=== PATIENT | female | born 1990 | race Caucasian/White ===

== ENCOUNTER 2017-11-07 17:12 | Inpatient (IN) | payer OTHER ==
[~2017-11-07] VITALS: Ht 165.1 cm; Wt 56.7 kg
[2017-11-07] MEDS ORDERED: MAGNESIUM HYDROXIDE 30 ML LIQUID UDC PO PRN (18:15)
[2017-11-07] MEDS ORDERED: ONDANSETRON 4 MG/2 ML VIAL IM PRN (18:15)
[2017-11-07] MEDS ORDERED: DICYCLOMINE HCL 20 MG TABLET PO PRN (18:15)
[2017-11-07] MEDS ORDERED: LORAZEPAM 1 MG TABLET PO PRN (18:15)
[2017-11-07] MEDS ORDERED: CLONIDINE HCL 0.1 MG TABLET PO PRN (18:15)
[2017-11-07] MEDS ORDERED: LOPERAMIDE HCL 2 MG CAPSULE PO PRN ×2 (18:15)
[2017-11-07] MEDS ORDERED: METHOCARBAMOL 750 MG TABLET PO PRN (18:15)
[2017-11-07] MEDS ORDERED: MIRALAX 17 GM POWD.PACK PO PRN (18:15)
[2017-11-07] MEDS ORDERED: diphenhydrAMINE 50 MG CAPSULE PO PRN (18:15)
[2017-11-07] MEDS ORDERED: ONDANSETRON ODT 4 MG TAB.RAPDIS SL PRN (18:15)
[2017-11-07] MEDS ORDERED: MAG HYDROX/AL HYDROX/SIMETH 30 ML LIQUID UDC PO PRN (18:15)
[2017-11-07] MEDS ORDERED: BUPRENORPHINE HCL 2 MG TAB.SUBL SL PRN (18:15)
[2017-11-07 18:28] LABS: *URINE HCG, QUAL NEGATIVE (NEGATIVE)
[2017-11-07 18:37] LABS: *AMPHETAMINE, URINE NEGATIVE (NEGATIVE); *BARBITURATE, URINE NEGATIVE (NEGATIVE); *CANNABINOID, URINE POSITIVE (NEGATIVE); *COCCAINE, URINE NEGATIVE (NEGATIVE); *OPIATE, URINE POSITIVE (NEGATIVE); *PHENCYCLIDINE SCREEN,URINE NEGATIVE (NEGATIVE)
--- NOTE | 2017-11-07 19:02 | NUR ---
PRE ADMISSION 27 year old female from [place], [place]. presented at intake office, noted alert and oriented x4, verbally responsive. Patient appears calm and cooperative. bp: 121/77 hr: 96 t: 98.0 r: 16 o2 sat: 99% room air. Patient reports no known drug allergies. Patient reports Substance use of: Heroin 2.5gram IV daily for 8 months, last used heroin 11/06/2017 at 2100-0.1gram IV, methamphetamine unknown amount IV daily for 10 months, last used methamphetamine unknown amount via IV on 11/05/2017, Klonopin 2mg PO once a week for 3 months, last used Klonopin 2mg PO on 11/01/2017, Xanax 2mg PO every other day for 3 months, last used Xanax 2mg "about two or three days ago". Patient reports also takes Suboxone 8mg SL when Heroin is unavailable, last used 11/07/2017 8mg SL. Reports relapsed on heroin 8 months ago, prior to that was taking Suboxone for two years. Patient reports past medical history of: bipolar d/o Dx: 5 years ago, depression Dx: age 18, anxiety Dx: age 18, and PTSD Dx: 2017. Reports she does not have a primary care physician. Reports history of seizures d/t benzodiazepine withdrawal, last seizure was 6 years ago. Patient was provided with education regarding unit policies and procedures with good verbal understanding. Patient arrived to [facility] at 1853, patients body search completed by female THERAPIST PHYS, no contraband found. Patients skin assessment completed noted with track durham on right A/C, area noted red with some swelling. Patient is 5 feet 5 inches and weighs 125lbs. Patient was oriented to unit and to room, education regarding call light was provided with good verbal understanding. Patient was seen and examined by Dr. Gonzales at intake office, prior to nursing pre admission. patient was endorsed to shiftman nurse, all pertinent information was discussed.
[2017-11-07] MEDS ORDERED: VENL150C2 PO (19:21)
[2017-11-07] MEDS ORDERED: DIAZEPAM 5 MG TABLET PO PRN (19:30)
[2017-11-07] MEDS ORDERED: NICOTINE POLACRILEX 4 MG GUM-PK OF TEN BC PRN (19:30)
[2017-11-07] MEDS ORDERED: LORAZEPAM 2 MG/1 ML VIAL IM PRN (19:30)
[2017-11-07] MEDS ORDERED: DIAZEPAM 10 MG TABLET PO PRN ×2 (19:30)
[2017-11-07] MEDS ORDERED: NICOTINE 14 MG/24HR PATCH TD PRN (19:30)
[2017-11-07 20:00] VITALS: BP 124/77
--- NOTE | 2017-11-07 20:00 | NUR ---
ADMISSION NOTE: Patient is a 26 y.o female admitted at [facility] at approximately 1853 am of 11/07/17 for medically supervised withdrawal from Heroin/Klonopin/Xanax/Meth. Pt is 5'5" tall and weighs 125 lbs in a standing scale. Patient follows a regular diet at home with no known food and drug allergies. Pt wishes to be full Code. Patient is alert & oriented x4. Patient is ambulatory with a steady gait. Speech is clear and audible. Patient reports anxiety. Patient is cooperative and answers questions appropriately during interview. No shortness of breath noted. Respiration even & unlabored. Abdomen soft & non-distended. Bowel sounds active in all four quadrants. No nausea reported. Patient complained of generalized body aches, sweating, chills, stuffy nose. No headache noted. Hand tremors noted. Patient denies any hallucinations. On admission pt noted with COWS 10 CIWA 6. Patient noted with past medical history of Anxiety, Depression, PTSD & Bipolar. Pt reported that she attempted suicide 4 years ago, per patient she tried hanging herself and tried drinking some pills. Pt currently denies SI/HI. Pt was able to provide urine sample for drug screen upon admission and is voiding clear yellow urine with no problems.Pt had been to multiple detox treatment and unable to recall all of them. Patient denies being hospitalized in the last 30 days. Pt reported that her longest period of sobriety was for 2 years from 9 months ago. Pt decided to come to treatment today because "I want to detox off heroin, meth & benzos". Patient reports symptoms when he does not use as "cold sweats, restless legs, nausea, contispation, diarrhea, body aches, tremors, dizziness". Patient consented for a flu and pneumonia vaccines. Urine drug screen came back positive for Opiates and Marijuana. Fall & Seizure precautions are in place. All needs attended & met. Safety precautions are in place. Bed locked in lowest position. Both side rails up. Pt educated regarding use of the call light and all questions answered. Dr. Gonzales saw pt on unit. Fall precautions ordered. Will continue to monitor patient.
[2017-11-07] MEDS: GABAPENTIN 300 MG CAPSULE PO SCH (20:31)
[2017-11-07] MEDS ORDERED: PROPRANOLOL HCL 20 MG TABLET PO PRN (20:45)
[2017-11-07] MEDS ORDERED: BUPRENORPHINE HCL 2 MG TAB.SUBL SL SCH (21:00)
[2017-11-07] MEDS ORDERED: DIAZEPAM 10 MG TABLET PO SCH (21:00)
[2017-11-07 21:20] LABS: BASOPHILS % (AUTO) 0.4 % (0.0-2.0); EOSINOPHILS # (AUTO) 0.3 K/uL (0.0-0.7); EOSINOPHILS % (AUTO) 2.6 % (0.0-7.0); HEMATOCRIT 35.6 % (31.2-41.9); HEMOGLOBIN 12.3 g/dL (10.9-14.3); LYMPHOCYTES # (AUTO) 3.7 K/uL (20.0-40.0); LYMPHOCYTES % (AUTO) 29.1 % (20.5-51.5); MEAN CORPUSCULAR HGB CONC 35 g/dL (32.3-35.6); MEAN CORPUSCULAR VOLUME 86.7 fL (75.5-95.3); MONOCYTES # (AUTO) 0.6 K/uL (2.0-10.0); MONOCYTES % (AUTO) 4.8 % (0.0-11.0); NEUTROPHILS # (AUTO) 8.1 K/uL (1.8-8.9); NEUTROPHILS % (AUTO) 63.1 % (38.5-71.5); PLATELET COUNT (AUTO) 339 K/uL (179-408); RED BLOOD CELL COUNT(AUTO) 4.11 MIL/uL (3.63-4.92); WHITE BLOOD COUNT (AUTO) 12.8 K/uL (3.8-11.8)
[2017-11-07 21:30] LABS: ETHANOL < 3 MG/DL (0-0)
[2017-11-07 21:33] LABS: ALANINE AMINOTRANSFERASE 26 U/L (14-59); ALKALINE PHOSPHATASE 85 U/L (50-136); ASPARTATE AMINOTRANSFERASE 13 U/L (15-37); BILIRUBIN,TOTAL 0.2 mg/dL (0.2-1.0); CARBON DIOXIDE 30 mmol/L (21-32); CHLORIDE 102 mmol/L (98-107); CREATININE 0.8 mg/dL (0.6-1.3); GLUCOSE 100 mg/dL (74-106); MAGNESIUM 1.9 mg/dL (1.8-2.4); POTASSIUM 4.3 mmol/L (3.5-5.1); TOTAL PROTEIN, SERUM 7.4 g/dL (6.4-8.2); UREA NITROGEN, BLOOD 16 mg/dL (7-18)
[2017-11-08] VITALS: BP 124/65
[2017-11-08 04:00] VITALS: BP 105/61
--- NOTE | 2017-11-08 07:00 | NUR ---
End of Shift Note: Patient is a 27 y.o female admitted last night 11/07/17 for Heroin/Klonopin/Xanax/ Suboxone/Meth use. Patient has PMHx of Anxiety, Depression, Bipolar, PTSD and withdrawal induced seizure(6 years ago). Patient is on a regular diet with no known food and drug allergies. Full Code status. Skin intact. Patient is on a Subutex and Valium taper started last night and is tolerating well with no adverse reactions noted. Last COWS 6 CIWA 3 @ 0000. Patient did not received any PRN medications. Continued to monitor signs and symptoms of withdrawal. Vitals monitored closely and noted to be within normal limits. Patient remained stable with No s/s of distress noted. Patient slept for a total of 5 hours. Fluid intake: 800 ml. Voided 1x with no bowel movement. Encourage pt to increase fluid intake. All needs attended & met. Safety measures in place. Will endorse pt to day shift nurse.
--- NOTE | 2017-11-08 07:10 | NUR ---
Patient is a 26 y.o female admitted at [facility] at approximately 1853 am of 11/07/17 for medically supervised withdrawal from Heroin/Klonopin/Xanax/Meth. Pt is 5'5" tall and weighs 125 lbs in a standing scale. Patient follows a regular diet at home with no known food and drug allergies. Pt wishes to be full code. Patient is asleep in bed at this time, breathing unlabored and even. Fall precautions ordered. Will continue to monitor patient. No PRN meds given on PM shift and last COWS 6 and CIWA 3 @ 0000.
[2017-11-08] MEDS: GABAPENTIN 300 MG CAPSULE PO SCH ×3 (08:49→21:25)
[2017-11-08] MEDS: DIAZEPAM 10 MG TABLET PO SCH ×3 (08:49→21:25)
[2017-11-08] MEDS: BUPRENORPHINE HCL 2 MG TAB.SUBL SL SCH ×3 (08:49→21:25)
[2017-11-08 08:55] VITALS: BP 105/61
[2017-11-08] MEDS ORDERED: TUBERCULIN,PURIF.PROT.DERIV. 5 TU/0.1 ML TEST ID ONE ×3 (09:00→13:00)
[2017-11-08] MEDS: VENLAFAXINE XR 150 MG CAP.SR.24H PO SCH (09:44)
[2017-11-08] MEDS: HYDROXYZINE PAMOATE 25 MG CAPSULE PO PRN ×2 (11:40→19:08)
--- NOTE | 2017-11-08 11:40 | NUR ---
PRN VISTARIL 25MG PO AND ROBAXIN 750MG PO GIVEN FOR COMPLAINTS OF RESTLESS LEGS AND LEG CRAMPS, WILL CONTINUE TO ASSESS
[2017-11-08 12:00] VITALS: BP 111/70
--- NOTE | 2017-11-08 12:40 | NUR ---
PRN REASSESS PATIENT STATES THAT VISTARIL 25MG PO AND ROBAXIN 750 MG PO WERE EFFECTIVE FOR HER RESTLESS LEGS AND MADE HER FEEL MORE COMFORTABLE, WILL CONTINUE TO MONITOR.
[2017-11-08 16:00] VITALS: BP 128/83
--- NOTE | 2017-11-08 18:39 | NUR ---
End of Shift Note: Patient is a 27 y.o female admitted on 11/07/17 for Heroin/Klonopin/Xanax/ Suboxone/Meth use. Patient has PMHx of Anxiety, Depression, Bipolar, PTSD and withdrawal induced seizure(6 years ago). Patient is on a regular diet with no known food and drug allergies. Full Code status. Skin intact. Patient is on day 2 of a 5 day modified Subutex and Valium taper and is tolerating well with no adverse reactions noted. Last COWS 6 @1600. Patient received PRN Robaxin 750mg po and Vistaril 25 mg po with positive results for leg cramp pain and discomfort . Patient attended group today. Continue to monitor signs and symptoms of withdrawal. Vitals monitored closely and noted to be within normal limits. Safety measures in place, side rails up x2 , bed in low locked position
--- NOTE | 2017-11-08 19:08 | NUR ---
PRN VALIUM/VISTARIL 10MG VALIUM PO AND 25MG VISTARIL 25MG COWS 9/ 9
--- NOTE | 2017-11-08 19:15 | NUR ---
Start of Shift Note: Patient is a 27 y.o female admitted last night 11/07/17 for Heroin/Klonopin/Xanax/ Suboxone/Meth use. Patient has PMHx of Anxiety, Depression, Bipolar, PTSD and withdrawal induced seizure(6 years ago). Patient is on a regular diet with no known food and drug allergies. Full Code status. Skin intact. Patient is on a Subutex and Valium taper and is tolerating well with no adverse reactions noted. Last COWS 9 CIWA 9. Patient received PRN Valium, Vistaril x2 & Robaxin during day shift. Patient is alert & oriented x4. No shortness of breath noted. Respiration even & unlabored. Abomen soft & non-distended. Patient denies N/V/D. Patient presented with complaints of 5/10 body aches, sweating, chills, stuffy nose, stomach cramps and anxiety. Bilateral hand tremors felt but not seen. Patient denies SI/HI at this time. Safety precautions are in place. Bed locked in lowest position. Both side rails up. Call light within pts reach. Will continue to monitor patient.
[2017-11-08 20:00] VITALS: BP 116/67
--- NOTE | 2017-11-08 20:08 | NUR ---
PRN Reassessment Patient verbalized decreased in sweating, chills & anxiety. Patient still presetned with 5/10 body aches, stuffy nose, stomach cramps and anxiety. COWS 7 CIWA 5 noted at this time. Will continue to monitor patient.
[2017-11-08] MEDS: CLONIDINE HCL 0.1 MG TABLET PO SCH (21:00)
[2017-11-09] VITALS: BP 112/62
[2017-11-09 04:00] VITALS: BP 108/56
--- NOTE | 2017-11-09 07:10 | NUR ---
End of Shift Note: Patient is a 27 y.o female admitted last night 11/07/17 for Heroin/Klonopin/Xanax/ Suboxone/Meth use. Patient has PMHx of Anxiety, Depression, Bipolar, PTSD and withdrawal induced seizure(6 years ago). Patient is on a regular diet with no known food and drug allergies. Full Code status. Skin intact. Patient is on a Subutex and Valium taper and is tolerating well with no adverse reactions noted. Last COWS 7 CIWA 5. Patient did not received any PRN medications. Continued to monitor signs and symptoms of withdrawal. Vitals monitored closely and noted to be within normal limits. Patient remained stable with No s/s of distress noted. Patient slept for a total of 6 hours. Fluid intake: 1153 ml. Voided 3x with no bowel movement. Encourage pt to increase fluid intake. All needs attended & met. Safety measures in place. Will endorse pt to day shift nurse.
--- NOTE | 2017-11-09 07:20 | NUR ---
Start of Shift Note: Patient is a 27 y.o female admitted 11/07/17 for Heroin/Klonopin/Xanax/ Suboxone/Meth use. Patient has PMH of Anxiety, Depression, Bipolar, PTSD and withdrawal induced seizure(6 years ago). Patient is on a regular diet with no known food and drug allergies. Full Code status. Skin intact. Patient is on a Subutex and Valium taper and this is day 3 and is tolerating well with no adverse reactions noted. Last COWS 7 CIWA 5 @ 2100. Patient did not received any PRN medications. Continued to monitor signs and symptoms of withdrawal. Patient slept for a total of 6 hours. Safety measures in place. Continue with MD plan of care
[2017-11-09 08:00] VITALS: BP 108/52
[2017-11-09] MEDS ORDERED: BUPRENORPHINE HCL 2 MG TAB.SUBL SL SCH (09:00)
[2017-11-09] MEDS ORDERED: DIAZEPAM 5 MG TABLET PO SCH (09:00)
[2017-11-09] MEDS: GABAPENTIN 300 MG CAPSULE PO SCH ×3 (09:00→22:14)
[2017-11-09] MEDS: CLONIDINE HCL 0.1 MG TABLET PO SCH ×3 (09:01→22:15)
[2017-11-09] MEDS: VENLAFAXINE XR 150 MG CAP.SR.24H PO SCH (09:02)
[2017-11-09 12:00] VITALS: BP 95/57
[2017-11-09] MEDS: DIAZEPAM 10 MG TABLET PO SCH ×2 (14:28→22:15)
[2017-11-09] MEDS: BUPRENORPHINE HCL 2 MG TAB.SUBL SL SCH ×2 (14:29→22:16)
[2017-11-09] MEDS: BACLOFEN 10 MG TABLET PO SCH ×2 (15:02→22:15)
[2017-11-09 16:00] VITALS: BP 127/76
--- NOTE | 2017-11-09 18:40 | NUR ---
End of shift note : Patient is a 27 y.o female admitted on 11/07/17 for Heroin/Klonopin/Xanax/ Suboxone/Meth use. Patient has PMHx of Anxiety, Depression, Bipolar, PTSD and withdrawal induced seizure(6 years ago). Patient is on a regular diet with no known food and drug allergies. Full Code status. Skin intact . patient is on day 2 of a 5 day modified Subutex and Valium taper and is tolerating well with no adverse reactions noted. Last COWS 6 @1600. Patient did not request or require any PRN medication today. Patient attended group today. Continue to monitor signs and symptoms of withdrawal. Vitals monitored closely and noted to be within normal limits. Safety measures in place, side rails up x2 , bed in low locked position.
--- NOTE | 2017-11-09 19:15 | NUR ---
START OF SHIFT Received 27 year old female patient admitted on 11/07/17 for Heroin, Klonopin, Xanax, Suboxone, Meth and Marijuana dependency. Pt is full code with NKA. She reports a PMHx of anxiety, depression, bipolar, PTSD, history of seizure d/t benzo withdrawal 6 years ago. She reports using Heroin IV 2.5 grams daily for 8 months. Last dose was 0.1 gram on 11/06/17. Klonopin 2 mg once a week fofr 3 months. Last dose was on 11/01/17. Xanax 2 mg every other day. Suboxone 8 mg " if heroin is not available" Last dose was 8 mg on 11/07/17. Meth IV 1 gram daily. Last dose was 1 gram on 11/07/17. Marijuana " couple bowls" Last dose was on 11/07/17. She is currently receiving a modified Subutex and Valium taper and tolerating well. Per endorsement, pt's taper was extended x1 day. She did not receive or request PRN medications. Pt is alert and oriented x4, breathing is even and unlabored. Safety measures in place. Will continue to monitor.
[2017-11-09 20:00] VITALS: BP 128/80
[2017-11-09] MEDS: PRAZOSIN HCL 1 MG CAPSULE PO PRN (22:13)
--- NOTE | 2017-11-09 22:13 | NUR ---
PRN MINIPRESS Pt reports having night terrors when she sleeps. PRN Minipress administered as ordered. Safety measures in place. Will continue to monitor.
--- NOTE | 2017-11-09 23:13 | NUR ---
PRN MINIPRESS REASSESSMENT PRN medication effective. Pt lying in bed with eyes closed noted to be asleep. Safety measures in place. Will continue to monitor.
[2017-11-10] VITALS: BP 115/65
[2017-11-10 04:00] VITALS: BP 105/55
--- NOTE | 2017-11-10 07:17 | NUR ---
END OF SHIFT Pt is 27 year old female patient admitted on 11/07/17 for Heroin, Klonopin, Xanax, Suboxone, Meth and Marijuana dependency. Pt is full code with NKA. She is currently receiving a modified Subutex and Valium taper and tolerating well. She received PRN Minipress. She slept a total of 7 hrs, Intake: 855mL, Void: x2, BM:0, COWS:9, CIWA:6. Pt remains alert and oriented x4, breathing is even and unlabored. Safety measures in place. Endorsed to AM shift.
--- NOTE | 2017-11-10 07:35 | NUR ---
START OF SHIFT Received 27 year old female patient admitted on 11/07/17 for Heroin, Klonopin, Xanax, Suboxone, Meth and Marijuana dependency. Pt is full code with IWLBERT. She reports a PMHx of anxiety, depression, bipolar, PTSD, history of seizure d/t benzo withdrawal 6 years ago. She is currently receiving a modified Subutex and Valium taper and tolerating well. Per endorsement, pt's taper was extended x1 day. LAST COWS 9 AND CIWA 6 She did not receive or request PRN medications. Pt is alert and oriented x4, breathing is even and unlabored. Safety measures in place. Will continue to monitor.
[2017-11-10 08:00] VITALS: BP 110/68
[2017-11-10] MEDS ORDERED: DIAZEPAM 5 MG TABLET PO SCH (09:00)
[2017-11-10] MEDS: BACLOFEN 10 MG TABLET PO SCH ×2 (09:57→15:30)
[2017-11-10] MEDS: CLONIDINE HCL 0.1 MG TABLET PO SCH ×3 (09:57→21:55)
[2017-11-10] MEDS: BUPRENORPHINE HCL 2 MG TAB.SUBL SL SCH ×3 (09:58→21:55)
[2017-11-10] MEDS: DIAZEPAM 5 MG TABLET PO SCH ×3 (09:58→21:55)
[2017-11-10] MEDS: VENLAFAXINE XR 150 MG CAP.SR.24H PO SCH (09:58)
[2017-11-10] MEDS: GABAPENTIN 300 MG CAPSULE PO SCH ×3 (09:59→21:55)
[2017-11-10 12:00] VITALS: BP 131/70
--- NOTE | 2017-11-10 13:44 | NUR ---
Therapist prompted client about group times. Client stated she will attend the afternoon group if she is not too tired.
[2017-11-10 16:00] VITALS: BP 133/78
[2017-11-10] MEDS ORDERED: OMEP20TA5 PO (17:32)
[2017-11-10] MEDS ORDERED: IMIP25TA6 PO (17:33)
[2017-11-10] MEDS ORDERED: CITA10TA9 PO (17:34)
--- NOTE | 2017-11-10 19:00 | NUR ---
End Of Shift Report given plan of care reviewed, Pt is in stable condition A&Ox4, VS monitored closely q 4 hours. Withdrawal symptoms were closely monitored. Initial COWS 9 CIWA 6. Patient encouraged adequate PO fluid intake as tolerated. Patient presented with tremors and anxiety during the day. Last COWS 4 CIWA 4. Per patient, Subutex and Ativan have been helping her with her withdrawal symptoms. Pt ate all of her meals. No PRN medications given during the day. Patient encouraged to attend group therapies/sessions to learn new coping skills to recent relapse, patient denies SI/HI. Participated in group and therapy sessions. All needs met and attended
--- NOTE | 2017-11-10 19:15 | NUR ---
START OF SHIFT Received 27 year old female patient admitted on 11/07/17 for Heroin, Klonopin, Xanax, Suboxone, Meth and Marijuana dependency. Pt is full code with NKTonya. She reports a PMHx of anxiety, depression, bipolar, PTSD, history of seizure d/t benzo withdrawal 6 years ago. She reports using Heroin IV 2.5 grams daily for 8 months. Last dose was 0.1 gram on 11/06/17. Klonopin 2 mg once a week fofr 3 months. Last dose was on 11/01/17. Xanax 2 mg every other day. Suboxone 8 mg " if heroin is not available" Last dose was 8 mg on 11/07/17. Meth IV 1 gram daily. Last dose was 1 gram on 11/07/17. Marijuana " couple bowls" Last dose was on 11/07/17. She is currently receiving a modified Subutex and Valium taper and tolerating well. Per endorsement, she did not receive or request PRN medications. A throat culture was done d/t complaints of sore throat. Awaiting results. Pt is alert and oriented x4, breathing is even and unlabored. Safety measures in place. Will continue to monitor.
[2017-11-10 20:00] VITALS: BP 104/70
[2017-11-10] MEDS: BACLOFEN 20 MG TABLET PO SCH (21:54)
[2017-11-10] MEDS: PRAZOSIN HCL 1 MG CAPSULE PO PRN (21:54)
[2017-11-10] MEDS: BENZOCAINE/MENTH/CETYLPYRD LOZENGE MM PRN (21:56)
--- NOTE | 2017-11-10 21:56 | NUR ---
PRN CEPACOL/MINIPRESS Pt complains of sore throat and night terrors. PRN Cepacol and Minipress administered as ordered. Safety measures in place. Will monitor effectiveness.
--- NOTE | 2017-11-10 22:56 | NUR ---
PRN REASSESSMENT PRN medications effective. Pt lying in bed with eyes closed noted to be asleep. Breathing even and unlabored. Safety measures in place. Will continue to monitor.
--- NOTE | 2017-11-11 | NUR ---
VITALS REFUSED 0000 vitals refused. Pt stated " I don't want to be bothered." Breathing is even and unlabored. Respirations 16. Safety measures in place. Will continue to monitor.
--- NOTE | 2017-11-11 04:00 | NUR ---
VITALS REFUSED/COWS AND CIWA DEFERRED 0400 vitals refused. Pt stated " I don't want to be bothered." COWS and CIWA deferred d/t pt lying in bed with eyes closed and is asleep. Breathing is even and unlabored. Respirations 16. Safety measures in place. Will continue to monitor.
[2017-11-11 04:09] LABS: HEPATITIS B SURFACE AG Negative (Negative)
[2017-11-11] MEDS: BENZOCAINE/MENTH/CETYLPYRD LOZENGE MM PRN (06:29)
[2017-11-11] MEDS: HYDROXYZINE PAMOATE 25 MG CAPSULE PO PRN (06:33)
--- NOTE | 2017-11-11 06:33 | NUR ---
PRN VISTARIL/CEPACOL Pt complains of anxiety and sore throat. PRN Vistaril and Cepacol administered as ordered. Will endorse to monitor effectiveness.
--- NOTE | 2017-11-11 07:01 | NUR ---
END OF SHIFT Pt is a 27 year old female patient admitted on 11/07/17 for Heroin, Klonopin, Xanax, Suboxone, Meth and Marijuana dependency. Pt is full code with NKA. She continues on a modified Subutex and Valium taper, currently on day 3/4 and tolerating well. She received PRN Cepacol and Minipress. She slept a total of 6 hrs, Intake: 1496mL, Void: x4, BM:1. Pt remains alert and oriented x4, breathing is even and unlabored. Safety measures in place. Endorsed to AM shift.
--- NOTE | 2017-11-11 07:05 | NUR ---
START OF SHIFT PATIENT RECEIVED SITTING UP IN BED COMPLAINING OF LEFT KNEE PAIN, OFFERED TYLENOL AND MOTRIN AND WARM COMPRESS, PATIENT STATES SHE HAS SORE THROAT, ALL LABS NEGATIVE FOR FLU/STREP THROAT. PATIENT SLEPT FOR 6 HORS LAST NIGHT WITH REQUEST FOR PRN CEPACOL THROAT LOZENGE AT 10PM AND 0630PM AND VISTARIL 25MG PO @0630. LAST COWS 4 AND CIWA 3 @ 2200. PATIENT ADMITTED ON 11/07/17 TO [facility] FOR WITHDRAWAL FROM HEROIN IV, KLONOPIN, XANAX , SUBOXONE, METH AND MARIJUANA AND IS ON A MODIFIED VALIUM/SUBUTEX TAPER AND THIS IS DAY 4 . SAFETY MEASURES IN PLACE,BED ON LOW LOCKED POSITION WITH SIDE RAILS UP X 2, WILL CONTINUE TO FOLLOW MD PLAN OF CARE.
[2017-11-11] MEDS: ACETAMINOPHEN 325 MG TABLET PO PRN (07:17)
[2017-11-11] MEDS: IBUPROFEN 600 MG TABLET PO PRN (07:17)
--- NOTE | 2017-11-11 07:17 | NUR ---
PRN TYLENOL/MOTRIN PATIENT COMPLAINS OF PAIN IN LEFT KNEE, MOTRIN 400MG PO AND TYLENOL 650MG PO GIVEN FOR PAIN AND INFLAMMATION, WARM PACK ALSO PLACE ON LEFT KNEE, WILL CONTINUE TO MONITOR
--- NOTE | 2017-11-11 07:33 | NUR ---
PRN REASSESS PATIENT STATES THAT CEPACOL THROAT LOZENGE HAS HELPED WITH HER SORE THROAT AND VISTARIL 25MG PO SOMEWHAT EFFECTIVE, WILL CONTINUE TO MONITOR
[2017-11-11 08:00] VITALS: BP 114/55
[2017-11-11] MEDS: GABAPENTIN 300 MG CAPSULE PO SCH ×3 (08:28→21:08)
[2017-11-11] MEDS: DIAZEPAM 5 MG TABLET PO SCH ×2 (08:28→21:08)
[2017-11-11] MEDS: VENLAFAXINE XR 150 MG CAP.SR.24H PO SCH (08:28)
[2017-11-11] MEDS: CLONIDINE HCL 0.1 MG TABLET PO SCH ×2 (08:28→21:08)
[2017-11-11] MEDS: BACLOFEN 20 MG TABLET PO SCH ×3 (08:28→21:08)
[2017-11-11] MEDS: BUPRENORPHINE HCL 2 MG TAB.SUBL SL SCH ×2 (08:29→21:08)
--- NOTE | 2017-11-11 08:33 | NUR ---
PRN REASSESS PATIENT STATES THAT TYLENOL 650MG PO AND MOTRIN 400MG PO HELPED ALLEVIATE HER KNEE PAIN SOMEWHAT, PAIN LEVEL NOW 5/10, WILL CONTINUE TO MONITOR AND OFFER ASSISTANCE
[2017-11-11] MEDS ORDERED: DIAZEPAM 5 MG TABLET PO SCH (09:00)
[2017-11-11] MEDS ORDERED: BUPRENORPHINE HCL 2 MG TAB.SUBL SL SCH (09:00)
[2017-11-11 12:00] VITALS: BP 104/47
[2017-11-11] MEDS: DIVALPROEX 250 MG TABLET.DR PO SCH ×2 (14:18→21:08)
[2017-11-11 16:00] VITALS: BP 114/70
--- NOTE | 2017-11-11 19:03 | NUR ---
End of shift : Patient is a 27 year old admitted to [facility] on 11/07/17, she is on a modified Subutex and valium taper and tolerating it well. Patient has slept a lot today and finally got up around 3 pm and took a shower and is more alert and awake and shows interest in starting to join group. PRN motrin 400mg po and Tylenol 650 mg po given at 0717 for complaints of knee pain and discomfort, patient has not complained about it since. New order for Depakote 250mg PO every AM/PM and Zyprexa 2.5 mg PO QHS. Last COWS 7 @ 1600 and CIWA 5 @ 1600. Safety measures in place, bed in low locked position, side rails up x 2. Continue plan of care.
--- NOTE | 2017-11-11 19:05 | NUR ---
Start of Shift Patient Received. Patient is noted in activities room participating in a group meeting. Patient is a 27 year old female admitted on 11/07/2017 for Opiate and Benzo Dependence and continues on a modified Valium and Subutex tapers. Per endorsement, Patient was seen and evaluated by Psychiatrist with new orders for Depakote with first dose given and Zyprexa with first dose to be given at 2100. Patient was given PRN Tylenol and Motrin for Left Knee pain with medication noted to be effective. Last noted CIWA 5 and COWS 7. All needs attended to promptly. Will continue plan of care as ordered.
[2017-11-11 20:05] VITALS: BP 114/76
[2017-11-11] MEDS: OLANZAPINE 2.5 MG TABLET PO SCH (21:08)
[2017-11-12 00:22] VITALS: BP 114/67
[2017-11-12 04:00] VITALS: BP 103/56
--- NOTE | 2017-11-12 07:08 | NUR ---
End of Shift Patient is in bed sleeping. Breathing even and non labored. No signs of pain or discomfort noted. No restlessness noted. Patient continues on a modified Subutex and Valium tapers. Patient was noted to participate in group and social activities prior to bed. patient was also noted to be emotionally labile. No PRN Medications administered. Last noted COWS 8 and CIWA 5. All needs attended to promptly. Will endorse to continue plan of care as ordered.
[2017-11-12] MEDS: BENZOCAINE/MENTH/CETYLPYRD LOZENGE MM PRN (07:14)
[2017-11-12] MEDS: ACETAMINOPHEN 325 MG TABLET PO PRN (07:14)
[2017-11-12] MEDS: IBUPROFEN 600 MG TABLET PO PRN (07:14)
--- NOTE | 2017-11-12 07:14 | NUR ---
PRN MEDS 650 MG TYLENOL PO / MOTRIN 400MG PO, CEPACOL THROAT LOZENGE GIVEN FOR C/O SORE THROAT, WILL REASSESS
--- NOTE | 2017-11-12 07:15 | NUR ---
START OF SHIFT PATIENT RECEIVED SITTING UP IN BED COMPLAINING SHE HAS SORE THROAT,TYLENOL 650MG PO AND MOTRIN 400MG PO AND CEPACOL THROAT LOZENGE GIVEN @ 0714. LABS NEGATIVE FOR FLU AND STREP RESULTS ARE PENDING. PATIENT SLEPT FOR 5.5 HOURS LAST NIGHT, NO PRN MEDS NEEDED OR REQUESTED. LAST COWS 8 AND CIWA 5 @ 1999. PATIENT ADMITTED ON 11/07/17 TO [facility] FOR WITHDRAWAL FROM HEROIN IV, KLONOPIN, XANAX , SUBOXONE, METH AND MARIJUANA AND IS ON A MODIFIED VALIUM/SUBUTEX TAPER AND THIS IS DAY 5 . SAFETY MEASURES IN PLACE,BED ON LOW LOCKED POSITION WITH SIDE RAILS UP X 2, WILL CONTINUE TO FOLLOW MD PLAN OF CARE.
[2017-11-12 08:00] VITALS: BP 98/52
--- NOTE | 2017-11-12 08:14 | NUR ---
PRN REASSESS MOTRIN 400 MG PO AND TYLENOL 650 MG PO EFFECTIVE IN PAIN CONTROL FOR SORE THROAT, CEPACOL LOZENGE STILL IN PATIENTS MOUTH DISSOLVING, WILL CONTINUE TO MONITOR
[2017-11-12] MEDS: VENLAFAXINE XR 150 MG CAP.SR.24H PO SCH (08:56)
[2017-11-12] MEDS: GABAPENTIN 300 MG CAPSULE PO SCH ×3 (08:56→21:22)
[2017-11-12] MEDS: BACLOFEN 20 MG TABLET PO SCH ×4 (08:57→21:23)
[2017-11-12] MEDS: DIVALPROEX 250 MG TABLET.DR PO SCH ×2 (08:57→21:22)
[2017-11-12] MEDS: CLONIDINE HCL 0.1 MG TABLET PO SCH ×3 (08:59→21:23)
[2017-11-12] MEDS ORDERED: BUPRENORPHINE HCL 2 MG TAB.SUBL SL SCH ×2 (09:00→21:00)
[2017-11-12] MEDS ORDERED: DIAZEPAM 5 MG TABLET PO SCH ×2 (09:00→21:00)
--- NOTE | 2017-11-12 10:50 | NUR ---
Therapist prompted client about group times. Client stated she will attend all groups today.
[2017-11-12 12:00] VITALS: BP 99/72
[2017-11-12] MEDS ORDERED: AMOXICILLIN TRIHYDRATE 500 MG CAPSULE PO SCH (13:00)
[2017-11-12 16:00] VITALS: BP 106/47
--- NOTE | 2017-11-12 18:41 | NUR ---
End of shift : Patient is a 27 year old admitted to [facility] on 11/07/17, she is on a modified Subutex and valium taper and tolerating it well. PRN motrin 400mg po and Tylenol 650 mg po and cepacol lozenge given at 0714 for complaints of throat pain and discomfort. Strep test came back positive and patient has to wear face mask when attending group or is out of her room. Last COWS 6 @ 1600 and CIWA 4 @ 1600. Safety measures in place, bed in low locked position, side rails up x 2. Continue plan of care
--- NOTE | 2017-11-12 19:15 | NUR ---
START OF SHIFT Received 27 year old female patient admitted on 11/07/17 for Heroin, Klonopin, Xanax, Suboxone, Meth and Marijuana dependency. Pt is full code with NKTonya. She reports a PMHx of anxiety, depression, bipolar, PTSD, history of seizure d/t benzo withdrawal 6 years ago. She reports using Heroin IV 2.5 grams daily for 8 months. Last dose was 0.1 gram on 11/06/17. Klonopin 2 mg once a week fofr 3 months. Last dose was on 11/01/17. Xanax 2 mg every other day. Suboxone 8 mg " if heroin is not available" Last dose was 8 mg on 11/07/17. Meth IV 1 gram daily. Last dose was 1 gram on 11/07/17. Marijuana " couple bowls" Last dose was on 11/07/17. She is currently receiving a modified Subutex and Valium taper and tolerating well. Per endorsement, her taper was extended for one day. Pt is positive for strep throat and is receiving PO antibiotics (Trimox) and is on isolation with droplet precautions. Pt is alert and oriented x4 and anxious. Breathing is even and unlabored. Safety measures in place. Will continue to monitor.
[2017-11-12 20:00] VITALS: BP 117/71
[2017-11-12] MEDS: OLANZAPINE 2.5 MG TABLET PO SCH (21:24)
[2017-11-12] MEDS: LACTOBACILLUS RHAMNOSUS GG 1 EACH CAPSULE PO SCH (21:24)
[2017-11-12] MEDS: AMOXICILLIN TRIHYDRATE 500 MG CAPSULE PO SCH (21:25)
[2017-11-13] VITALS: BP 110/65
--- NOTE | 2017-11-13 07:20 | NUR ---
END OF SHIFT Pt is a 27 year old female patient admitted on 11/07/17 for Heroin, Klonopin, Xanax, Suboxone, Meth and Marijuana dependency. Pt is full code with NKA. She continues on a modified Subutex and Valium taper and tolerating well. She did not receive or request PRN medications. She slept a total of 5 hrs, Intake:1105mL, Void:x3, BM:x1, COWS: 6, CIWA:3. Pt remains alert and oriented x4 and anxious. Breathing is even and unlabored. Safety measures in place. Endorsed to AM shift.
--- NOTE | 2017-11-13 07:45 | NUR ---
START OF SHIFT Endorse rcvd from ongoing nurse, client is in room, clothes, chips, dry cereal scattered on the floor, she is a/o to name, place and situation, she presents with anxious mood, flat affect, skin moist, flushed face, and stomach cramps. Client reports chills/cold, nausea, joint aches, and decreased in appetite. She denies any SI/HI. Encourage client to increase PO fluid as tolerated. Encourage client to attend gropu therapy for skills to maintain sober. Client was admitted for withdrawal from heroin and clonazepam. She is on a modified 6 day Diazepam/6 day Subutex (Last day). Last CIWA 3/COWS 6 @ 1999. Client had an uneventful nigh, she slept 8 hrs. Client is on Amoxicillin 500 mg PO BID x 9 out of 10 days for + Group A Strep, client tolerating well, she denies any diarrhea. NKA, Full code, regular diet. She is on seizure precautions. Rock Dust Sprayer rails x 2 up/padded. Call light within reach.
[2017-11-13 08:08] VITALS: BP 102/64
[2017-11-13] MEDS ORDERED: DIAZEPAM 5 MG TABLET PO SCH (09:00)
[2017-11-13] MEDS ORDERED: BUPRENORPHINE HCL 2 MG TAB.SUBL SL SCH (09:00)
[2017-11-13] MEDS: GABAPENTIN 300 MG CAPSULE PO SCH ×3 (09:28→21:09)
[2017-11-13] MEDS: LACTOBACILLUS RHAMNOSUS GG 1 EACH CAPSULE PO SCH ×2 (09:28→21:08)
[2017-11-13] MEDS: AMOXICILLIN TRIHYDRATE 500 MG CAPSULE PO SCH ×2 (09:28→21:08)
[2017-11-13] MEDS: VENLAFAXINE XR 150 MG CAP.SR.24H PO SCH (09:28)
[2017-11-13] MEDS: DIVALPROEX 250 MG TABLET.DR PO SCH ×2 (09:29→21:09)
[2017-11-13] MEDS: BACLOFEN 20 MG TABLET PO SCH ×3 (09:29→21:07)
[2017-11-13] MEDS: CLONIDINE HCL 0.1 MG TABLET PO SCH ×3 (09:29→21:06)
[2017-11-13 12:29] VITALS: BP 91/58
[2017-11-13] MEDS ORDERED: LACT1CAP57 PO (14:02)
[2017-11-13] MEDS ORDERED: GABA-534 PO ×2 (14:02)
[2017-11-13] MEDS ORDERED: IBUP-1955 PO (14:02)
[2017-11-13] MEDS ORDERED: CLON0.1T14 PO (14:02)
[2017-11-13] MEDS ORDERED: PRAZ1CAP2 PO (14:02)
[2017-11-13] MEDS ORDERED: OLAN2.5T3 PO (14:02)
[2017-11-13] MEDS ORDERED: DIVA250T4 PO (14:02)
[2017-11-13] MEDS ORDERED: HYDR-3895 PO (14:02)
[2017-11-13] MEDS ORDERED: DICY20TA28 PO (14:02)
[2017-11-13] MEDS ORDERED: DIPH50CA37 PO (14:02)
[2017-11-13] MEDS ORDERED: BACL20TA PO (14:02)
[2017-11-13] MEDS ORDERED: AMOX500C2 PO (14:02)
[2017-11-13 16:09] VITALS: BP 91/54
--- NOTE | 2017-11-13 16:10 | NUR ---
Unable to assess for CIWA/COWS, client is too sedated. RR 18, even, non-labored. Call light within reach. Will continue to monitor.
--- NOTE | 2017-11-13 19:15 | NUR ---
START OF SHIFT Received 27 year old female patient admitted on 11/07/17 for Heroin, Klonopin, Xanax, Suboxone, Meth and Marijuana dependency. Pt is full code with [facility]. She reports a PMHx of anxiety, depression, bipolar, PTSD, history of seizure d/t benzo withdrawal 6 years ago. She reports using Heroin IV 2.5 grams daily for 8 months. Last dose was 0.1 gram on 11/06/17. Klonopin 2 mg once a week fofr 3 months. Last dose was on 11/01/17. Xanax 2 mg every other day. Suboxone 8 mg " if heroin is not available" Last dose was 8 mg on 11/07/17. Meth IV 1 gram daily. Last dose was 1 gram on 11/07/17. Marijuana " couple bowls" Last dose was on 11/07/17. She completed a modified Subutex and Valium taper and tolerated well. Pt is positive for strep throat and continues PO antibiotics (Trimox) and droplet precautions. She is scheduled to be DC tomorrow to [facility]. Pt is alert and oriented x4. Breathing is even and unlabored. Safety measures in place. Will continue to monitor.
--- NOTE | 2017-11-13 19:25 | NUR ---
END OF SHIFT Client is in room, she is a/o to name, place and situation, she continue to present with anxious mood, flat affect. Client is not compliant with group therapy. Adequate PO fluid intake 1406mL, void x 4, stool x 1. She denies any SI/HI. Client was admitted for withdrawal from heroin and clonazepam. She complited a modified 6 day Diazepam/6 day Subutex . Last CIWA 4/COWS 4 @ 1200. Client is on Amoxicillin 500 mg PO BID x 9 out of 10 days for + Group A Strep, client tolerating well, she denies any diarrhea. NKA, Full code, regular diet. She is on seizure precautions. Ticket Sales Supervisor rails x 2 up/padded. Call light within reach.
[2017-11-13 20:00] VITALS: BP 110/71
[2017-11-13] MEDS: OLANZAPINE 2.5 MG TABLET PO SCH (21:07)
[2017-11-13] MEDS: BENZOCAINE/MENTH/CETYLPYRD LOZENGE MM PRN (21:10)
[2017-11-14] VITALS: BP 108/61
--- NOTE | 2017-11-14 04:00 | NUR ---
VITALS REFUSED/COWS AND CIWA DEFERRED 0400 vitals refused. COWS and CIWA deferred d/t pt lying in bed with eyes closed and is asleep. Breathing is even and unlabored. Respirations 16. Safety measures in place. Will continue to monitor.
--- NOTE | 2017-11-14 07:04 | NUR ---
END OF SHIFT Pt is in bed sleeping, but easily aroused to verbal stimuli. She completed her modified Valium and Subutex taper and is scheduled to be DC today to [facility]. She complained of anxiety at the beginning of the shift. One hour after medication administration pt was noted to be more calm and less anxious/agitated. She slept a total of 6 hrs, Intake: 755mL, Void: x3, BM:x1, COWS:4, CIWA:3. Pt remains alert and oriented x4. Breathing is even and unlabored. Safety measures in place. Will endorse to AM shift.
--- NOTE | 2017-11-14 07:45 | NUR ---
START OF SHIFT Endorse rcvd from ongoing nurse, client is in room, she is a/o x 4, she presents with depressed mood, flat affect. She stated, "I'm a little bit nervous leaving this place, I feel safe here, there is no drugs for me here, but once I get where I am going, I'll meet other people that might give me drugs." Encourage client to participate in her treatment at [facility] and join NA, she verbalized understanding. Discuss discharge instructions, no inquiries made at this time. Client was admitted for withdrawal from heroin and clonazepam. She completed modified 6 day Diazepam/6 day Subutex. Last CIWA 3/COWS 4 @ 1999. Client had an uneventful nigh, she slept 6 hrs. Client is on Amoxicillin 500 mg PO BID x 8 out of 10 days for + Group A Strep, client tolerating well, she denies any diarrhea. NKA, Full code, regular diet. She is on seizure precautions. Wrecker Driver rails x 2 up/padded. Call light within reach.
[2017-11-14 08:32] VITALS: BP 106/64
[2017-11-14] MEDS: LACTOBACILLUS RHAMNOSUS GG 1 EACH CAPSULE PO SCH (08:44)
[2017-11-14] MEDS: BACLOFEN 20 MG TABLET PO SCH (08:44)
[2017-11-14] MEDS: AMOXICILLIN TRIHYDRATE 500 MG CAPSULE PO SCH (08:44)
[2017-11-14] MEDS: GABAPENTIN 300 MG CAPSULE PO SCH (08:44)
[2017-11-14] MEDS: VENLAFAXINE XR 150 MG CAP.SR.24H PO SCH (08:44)
[2017-11-14] MEDS: DIVALPROEX 250 MG TABLET.DR PO SCH (08:44)
[2017-11-14 08:46] VITALS: BP 106/64
[2017-11-14] MEDS: CLONIDINE HCL 0.1 MG TABLET PO SCH (08:46)
--- NOTE | 2017-11-14 09:43 | NUR ---
Discharge note Client was admitted for withdrawal from heroin and clonazepam. Client completed modified 6 day Diazepam/6 day Subutex taper. Client has a recent CIWA 2/COWS 2. Client VS are WNL. Client LBM was 11/14/17. Client denies any SI/HI. Client verbalized her understanding of the discharge instructions. Client has no complaints at this time. Client discharge instructions, prescriptions, and all belongings returned to her. All needs addressed at this time. Client ambulated off of unit, she left facility via [facility] for [facility].
== END 2017-11-14 09:43 | disposition other institution (70) | DRG 895 ==
LOC: SRC 17:43
PROVIDERS: ADMIT Internal Medicine; ATTEND Internal Medicine
PROC: HZ2ZZZZ Detoxification Services for Substance Abuse Treatment (ICD-10-PCS; principal; 2017-11-07)
PROC: HZ41ZZZ Group Counseling for Substance Abuse Treatment, Behavioral (ICD-10-PCS; 2017-11-08)
PROC: HZ31ZZZ Individual Counseling for Substance Abuse Treatment, Behavioral (ICD-10-PCS; 2017-11-10)
DX: F13.232 Sedative, hypnotic or anxiolytic dependence with withdrawal with perceptual disturbance (principal); F33.2 Major depressive disorder, recurrent severe without psychotic features; F17.210 Nicotine dependence, cigarettes, uncomplicated; F11.23 Opioid dependence with withdrawal; F41.9 Anxiety disorder, unspecified; Z91.89 Other specified personal risk factors, not elsewhere classified; F15.23 Other stimulant dependence with withdrawal; G47.50 Parasomnia, unspecified; Z79.899 Other long term (current) drug therapy; J02.0 Streptococcal pharyngitis; B95.0 Streptococcus, group A, as the cause of diseases classified elsewhere; Z82.49 Family history of ischemic heart disease and other diseases of the circulatory system; Z82.61 Family history of arthritis; Z81.3 Family history of other psychoactive substance abuse and dependence; F12.10 Cannabis abuse, uncomplicated
CPT/HCPCS: 36415; 70030-TC; 80307; 80349; 80361; 83735; 84703; 85025; 86403; 86580; 86592; 86705; 86803; 87070; 87340; 87400; 87806; A4663; G0480; J3490